=== PATIENT | male | born 1965 | race Caucasian/White ===

== ENCOUNTER 2016-07-06 12:03 | Emergency (ER) | payer OTHER ==
[2016-07-06 12:15] VITALS: BP 132/70; PULSE 64; TEMP 98; BMI 27.1
[2016-07-06] MEDS ORDERED: DIPHTH,PERTUSS(ACELL),TET 0.5 ML DISP.SYRIN IM ONE (12:30)
--- NOTE | 2016-07-06 12:37 | PDOC ---
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 DEnies pain or problems, states knows owners and states shots for dog are UTD. Refuses Rabies prophylaxis Past History - Travel Traveled outside of the country in the last 30 days: No Close contact w/someone who was outside of country & ill: No - Past Medical History Allergies/Adverse Reactions: Allergies Allergy/AdvReac Type Severity Reaction Status Date / Time Penicillins Allergy Severe Verified 07/06/16 12:12 Home Medications: Ambulatory Orders Levothyroxine [Synthroid -] 150 mcg PO DAILY 11/08/15 Anemia: No Asthma: No Cancer: No Cardiac Disorders: No CVA: No COPD: No CHF: No Dementia: No Diabetes: No GI Disorders: No Disorders: No HTN: No Hypercholesterolemia: No Liver Disease: No Seizures: No Thyroid Disease: Yes - Surgical History Abdominal Surgery: No Appendectomy: No Cardiac Surgery: No Cholecystectomy: No Lung Surgery: No Neurologic Surgery: No Orthopedic Surgery: Yes (ORIF Right Hand-Removal of hardware) - Psycho/Social/Smoking Cessation Hx Anxiety: No Suicidal Ideation: No Smoking Status: No Smoking History: Never smoked Have you smoked in the past 12 months: Yes Number of Cigarettes Smoked Daily: 0 Information on smoking cessation initiated: No 'Breaking Loose' booklet given: 04/01/14 Hx Alcohol Use: No Drug/Substance Use Hx: No Substance Use Type: Alcohol Hx Substance Use Treatment: No Trauma Specific PMHX - Complaint Specific PMHX Back Injury: No Neck Injury: No Review of Systems - Review of Systems Able to Perform ROS?: Yes Is the patient limited [place] Irish proficient: Yes Constitutional: Yes: Symptoms Reported, See HPI. No: Fever, Malaise HEENTM: Yes: See HPI. No: Symptoms Reported Respiratory: No: Symptoms reported Musculoskeletal: Yes: Symptoms Reported, See HPI, Muscle Pain (calf ) Integumentary: Yes: Symptoms Reported, See HPI, Bruising Neurological: Yes: Symptoms reported, See HPI All Other Systems: Reviewed and Negative *Physical Exam - Vital Signs Last Vital Signs Temp Pulse Resp BP Pulse Ox 98 F 64 18 132/70 97 07/06/16 12:12 07/06/16 12:12 07/06/16 12:12 07/06/16 12:12 07/06/16 12:12 - Physical Exam General Appearance: Yes: Nourished, Appropriately Dressed, Apparent Distress HEENT: positive: ADILSON, Normal ENT Inspection, TMs Normal, Pharynx Normal Neck: positive: Supple. negative: Tender, Lymphadenopathy (R), Lymphadenopathy (L) Respiratory/Chest: positive: Lungs Clear, Normal Breath Sounds Gastrointestinal/Abdominal: positive: Soft Musculoskeletal: positive: Normal Inspection Extremity: positive: Normal Capillary Refill, Normal Inspection, Normal Range of Motion, Tender, Other (superficial abrasion, with faint ecchymoses noted at area of wound. Is not a deep puncture wound, has no active bleeding, is nontender or swollen at site. Full range of motion to foot, neurovascular intact.) Integumentary: positive: Normal Color, Dry, Warm, Pale Neurologic: positive: director of sleep II-XII NML intact, Fully Oriented, Alert, Normal Mood/ Affect, Normal Response, Motor Strength 5/5 Progress Note - Progress Note Progress Note: Dog bite, specific injury. Updated tetanus, and will follow-up with PMD as needed. Patient refuses rabies prophylaxis. *DC/Admit/Observation/Transfer Diagnosis at time of Disposition: Dog bite of calf Qualifiers: Encounter type: initial encounter Laterality: right Qualified Code(s): S81.851A - Open bite, right lower leg, initial encounter - Discharge Dispostion Disposition: HOME Condition at time of disposition: Stable Admit: No - Patient Instructions Printed Discharge Instructions: DI for Animal Bites Additional Instructions: Keep wound clean and dry Reapply Bacitracin 2 times a day until healed Your Tetanus / Pertussis/ Diptheria updated Will followup with Department - Post Discharge Activity Work/School Note: Back to Work
--- NOTE | 2016-07-06 12:39 | PDOC ---
History of Present Illness - General Chief Complaint: Bite Stated Complaint: RT LEG DOG BITE ([employer]) Time Seen by Provider: 07/06/16 12:19 History Source: Patient Exam Limitations: No Limitations - History of Present Illness Initial Comments: 07/06/16 12:27 Past History - Travel Traveled outside of the country in the last 30 days: No Close contact w/someone who was outside of country & ill: No - Past Medical History Allergies/Adverse Reactions: Allergies Allergy/AdvReac Type Severity Reaction Status Date / Time Penicillins Allergy Severe Verified 07/06/16 12:12 Home Medications: Ambulatory Orders Levothyroxine [Synthroid -] 150 mcg PO DAILY 11/08/15 Anemia: No Asthma: No Cancer: No Cardiac Disorders: No CVA: No COPD: No CHF: No Dementia: No Diabetes: No GI Disorders: No Disorders: No HTN: No Hypercholesterolemia: No Liver Disease: No Seizures: No Thyroid Disease: Yes - Surgical History Abdominal Surgery: No Appendectomy: No Cardiac Surgery: No Cholecystectomy: No Lung Surgery: No Neurologic Surgery: No Orthopedic Surgery: Yes (ORIF Right Hand-Removal of hardware) - Psycho/Social/Smoking Cessation Hx Anxiety: No Suicidal Ideation: No Smoking Status: No Smoking History: Never smoked Have you smoked in the past 12 months: Yes Number of Cigarettes Smoked Daily: 0 Information on smoking cessation initiated: No 'Breaking Loose' booklet given: 04/01/14 Hx Alcohol Use: No Drug/Substance Use Hx: No Substance Use Type: Alcohol Hx Substance Use Treatment: No Trauma Specific PMHX - Complaint Specific PMHX Back Injury: No Neck Injury: No *Physical Exam - Vital Signs Last Vital Signs Temp Pulse Resp BP Pulse Ox 98 F 64 18 132/70 97 07/06/16 12:12 07/06/16 12:12 07/06/16 12:12 07/06/16 12:12 07/06/16 12:12 *DC/Admit/Observation/Transfer Diagnosis at time of Disposition: Dog bite of calf Qualifiers: Encounter type: initial encounter Laterality: right Qualified Code(s): S81.851A - Open bite, right lower leg, initial encounter; W54.0XXA - Bitten by dog, initial encounter - Discharge Dispostion Disposition: HOME Condition at time of disposition: Stable Admit: No - Patient Instructions Printed Discharge Instructions: DI for Animal Bites Additional Instructions: Keep wound clean and dry Reapply Bacitracin 2 times a day until healed Your Tetanus / Pertussis/ Diptheria updated Will followup with Department - Post Discharge Activity Work/School Note: Back to Work
== END 2016-07-06 13:27 | disposition home or self-care (01) ==
LOC: JERFT 12:03
PROC: 3E0234Z Introduction of Serum, Toxoid and Vaccine into Muscle, Percutaneous Approach (ICD-10-PCS; principal; 2016-07-06)
DX: S80.871A Other superficial bite, right lower leg, initial encounter (principal); W54.0XXA Bitten by dog, initial encounter; Y93.89 Activity, other specified; Y92.59 Other trade areas as the place of occurrence of the external cause; Y99.0 Civilian activity done for income or pay
CPT/HCPCS: 90715; 99281-25

== ENCOUNTER 2017-04-29 17:22 | Emergency (ER) | payer OTHER ==
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
[2017-04-29 17:31] VITALS: BP 135/86; PULSE 78; TEMP 98.4; BMI 61.4
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
== END 2017-04-29 17:48 | disposition home or self-care (01) ==
LOC: JER 17:22 → JERFT 17:22
DX: S60.411A Abrasion of left index finger, initial encounter (principal); Y35.811A Legal intervention involving manhandling, law enforcement official injured, initial encounter; Y93.89 Activity, other specified; Y92.89 Other specified places as the place of occurrence of the external cause; Y99.0 Civilian activity done for income or pay
CPT/HCPCS: 99281-25

== ENCOUNTER 2018-08-13 22:24 | Emergency (ER) | payer BC, OTHER ==
[2018-08-13 22:39] VITALS: BP 124/84; PULSE 105; TEMP 98.9; BMI 29.9
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
== END 2018-08-13 23:10 | disposition home or self-care (01) ==
LOC: FER 22:24
PROC: 0HQ1XZZ Repair Face Skin, External Approach (ICD-10-PCS; principal; 2018-08-13)
DX: S01.81XA Laceration without foreign body of other part of head, initial encounter (principal); Y04.0XXA Assault by unarmed brawl or fight, initial encounter; Y93.9 Activity, unspecified; Y92.89 Other specified places as the place of occurrence of the external cause
CPT/HCPCS: 99281-25

== ENCOUNTER 2020-03-27 02:36 | Emergency (ER) | payer OTHER ==
[2020-03-27 02:45] VITALS: BP 132/97; PULSE 73; TEMP 98.5; BMI 32.1
[2020-03-27] MEDS ORDERED: IBUPROFEN 600 MG TABLET (FP) PO ONE ×2 (02:58→02:59)
[2020-03-27] MEDS ORDERED: METHOCARBAMOL 500 MG TABLET PO ONE (02:58)
[2020-03-27] MEDS ORDERED: METHOCARBAMOL 500 MG TABLET ONE (02:59)
== END 2020-03-27 03:12 | disposition home or self-care (01) ==
LOC: FER 02:36
DX: S29.011A Strain of muscle and tendon of front wall of thorax, initial encounter (principal); S43.402A Unspecified sprain of left shoulder joint, initial encounter; S63.92XA Sprain of unspecified part of left wrist and hand, initial encounter
CPT/HCPCS: 99284-25

== ENCOUNTER 2021-09-19 15:48 | Emergency (ER) | payer OTHER ==
[2021-09-19 15:59] VITALS: BP 147/98; PULSE 96; RESP 20; TEMP 98.2; BMI 32.8
== END 2021-09-19 16:22 | disposition home or self-care (01) ==
LOC: FER 15:48
DX: S53.402A Unspecified sprain of left elbow, initial encounter (principal); X50.0XXA Overexertion from strenuous movement or load, initial encounter
CPT/HCPCS: 99281-25